=== PATIENT | female | born 1970 | race Caucasian/White ===

== ENCOUNTER 2018-04-11 11:03 | Emergency (ER) | payer BC ==
[~2018-04-11] VITALS: Ht 162.6 cm; Wt 77.1 kg
[2018-04-11 11:09] VITALS: BP 138/93
[2018-04-11] MEDS ORDERED: KETOROLAC TROMETH 60MG/2ML VIAL IM ONE (13:15)
[2018-04-11] MEDS ORDERED: methylPREDNISolone SOD SUCC 125 MG/2 ML VL IM ONE (13:15)
== END 2018-04-11 13:48 | disposition home or self-care (01) ==
LOC: ER 11:03
DX: N39.0 Urinary tract infection, site not specified (principal); Z88.8 Allergy status to other drugs, medicaments and biological substances
CPT/HCPCS: 72100; 76705; 96372; 99284; J1885; J2930

== ENCOUNTER → 2018-12-06 | Outpatient (CLI) | payer BC ==
[2018-12-06 11:35] LABS: % Iron Saturation 10.7 % (15-50)
== END | disposition home or self-care (01) ==
LOC: LAB 10:07
PROVIDERS: ATTEND Psychiatry & Neurology Neurology
DX: E61.1 Iron deficiency (principal)
CPT/HCPCS: 82728; 83540; 83550

== ENCOUNTER 2024-02-01 10:10 | Day surgery (SDC) | payer BC ==
[2024-02-01] VITALS (10 sets, daily range): BP systolic 113–128; BP diastolic 80–89; PULSE 71–81; RESP 16–21; TEMP 98.1; O2SAT 98–100
[~2024-02-01] VITALS: Ht 162.6 cm; Wt 72.6 kg
[2024-02-01] MEDS ORDERED: LIDOCAINE 2%HCL (LOCAL ANESTH.) INJ 20ML MDV ONE (11:52)
[2024-02-01] MEDS ORDERED: IODIXANOL 320MG/ML 100ML BTL IV ONE (11:52)
[2024-02-01] MEDS ORDERED: ANGIOMAX 250 MG VIAL IV ONE (11:55)
[2024-02-01] MEDS ORDERED: HEPARIN SODIUM (PORCINE) 5000 UNITS/ML 1ML VIAL ONE (11:55)
[2024-02-01] MEDS ORDERED: MIDAZOLAM HCL 2MG/2ML 2ml VIAL (1mg/ml) ONE (11:55)
[2024-02-01] MEDS ORDERED: fentaNYL CITRATE 100 MCG/2 ML VL ONE (11:55)
[2024-02-01] MEDS ORDERED: VERAPAMIL 2.5MG/ML INJ 2ML VIAL IV ONE (11:55)
[2024-02-01] MEDS ORDERED: SODIUM CHL 0.9% 0 ML ONE (11:56)
== END 2024-02-01 15:09 | disposition home or self-care (01) ==
LOC: CATH 10:10
PROVIDERS: ATTEND Internal Medicine
DX: R94.39 Abnormal result of other cardiovascular function study (principal); Z88.8 Allergy status to other drugs, medicaments and biological substances; Z91.09 Other allergy status, other than to drugs and biological substances; Z79.899 Other long term (current) drug therapy; Z98.890 Other specified postprocedural states
CPT/HCPCS: 93458; C1769; C1894; J1644; J2250; J3010; Q9967; 99152